=== PATIENT | male | born 1995 | race Caucasian/White ===

== ENCOUNTER 2022-07-12 15:22 | Outpatient (CLI) | payer BC | END 2022-07-12 15:23 | disposition home or self-care (01) | LOC: CSHMRI 15:22 | PROVIDERS: ATTEND Orthopaedic Surgery Hand Surgery | DX: S60.022A Contusion of left index finger without damage to nail, initial encounter (principal); S63.651A Sprain of metacarpophalangeal joint of left index finger, initial encounter ==